=== PATIENT | male | born 1960 | race Caucasian/White ===

== ENCOUNTER → 2017-09-24 | Outpatient (CLI) | payer BC | LOC: RAD 09:26 | DX: J98.11 Atelectasis (principal); J98.4 Other disorders of lung ==

== ENCOUNTER → 2019-07-09 | Outpatient (CLI) | payer BC | LOC: RAD 10:42 | DX: J98.4 Other disorders of lung (principal); D86.9 Sarcoidosis, unspecified; Z88.8 Allergy status to other drugs, medicaments and biological substances ==

== ENCOUNTER → 2020-12-13 | Outpatient (CLI) | payer BC, OTHER | LOC: RAD 11:58 | PROVIDERS: ATTEND Internal Medicine | DX: R91.8 Other nonspecific abnormal finding of lung field (principal); D86.9 Sarcoidosis, unspecified ==